=== PATIENT | male | born 1990 | race Two or more races ===

== ENCOUNTER 2023-09-24 06:32 | Outpatient (REF) | payer OTHER, SELFPAY ==
--- NOTE | ~2023-09-24 | US_ITS ---
EXAMINATION: US left lower quadrant, LIMITED/FOLLOW UP CLINICAL INFORMATION: Fullness in the inguinal region. COMPARISON: None available. TECHNIQUE: Targeted ultrasound of left lower quadrant and inguinal canal region. FINDINGS: No mass. No hernia. No fluid collections. US/US pelvic limited IMPRESSION: Unremarkable examination.
== END 2023-09-24 06:33 | disposition home or self-care (01) ==
LOC: HO.UMASIMG 06:32
PROVIDERS: Visit Provider Family Medicine
DX: K45.8 Other specified abdominal hernia without obstruction or gangrene (principal)
CPT/HCPCS: 76857